=== PATIENT | female | born 1990 | race Caucasian/White ===

== ENCOUNTER 2019-04-20 19:25 | Inpatient (IN) ==
--- NOTE | 2019-04-20 21:28 | Emergency Department Note ---
Disposition Clinical Impression: Chronic schizophrenia, Acute psychosis, Dissociative identity disorder, Thoughts of violence, Marijuana abuse Disposition: Admitted As Inpatient Referrals: NONE,PCP [Primary Care Provider] - Forms: ED Satisfaction Letter Time of Disposition: 01:37 General Adult HPI - General Chief complaint: ED Psychiatric Symptoms Stated complaint: Psych Eval/Poss HI Time Seen by Provider: 04/20/19 21:27 Source: patient Limitations: no limitations - History of Present Illness HPI Narrative: 28-year-old female with a history of dissociative identity disorder and schizoaffective disorder reports to the emergency department complaining of increasing agitation with fleeting violent thoughts and hallucinosis. She denies suicidal or homicidal intent. She states she wants to be admitted to a specialty center in [place]. The patient denies self-injurious behavior, there is no history of acute trauma or acute physical complaint. The patient denies chest pain shortness of breath or abdominal pain. No trouble walking talking hearing seeing or speaking no convulsions. There is no history of headache neck stiffness rash or urinary symptoms or current . The patient denies attempted overdose or attempting to harm herself. She reports that her dissociative avoidances order is exacerbating her schizophrenia. Pain Scale: 0 - Related Data Home Medications Medication Instructions Recorded Confirmed Aripiprazole [Abilify] 5 mg PO DAILY 10/01/16 06/30/18 Levothyroxine [Synthroid] 125 mcg PO 0630 10/01/16 06/30/18 [place] Carbonate ER [Eskalith] 450 mg PO BID 10/01/16 06/30/18 Propranolol [Inderal] 20 mg PO BID 10/01/16 06/30/18 HydrOXYzine Pamoate [Vistaril] 25 mg PO BID 06/30/18 06/30/18 Norgestimate-Ethinyl Estradiol 1 each PO DAILY 06/30/18 06/30/18 [Sprintec 28 Day Tablet] Allergies Allergy/AdvReac Type Severity Reaction Status Date / Time No Known Allergies Allergy Verified 06/30/18 09:56 All systems ED: reviewed and negative except as stated. 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 LTC history - Social History Smoking Status: Current every day smoker Smokeless Tobacco Status: No Alcohol use: Reports: occasionally Drug use: Reports: marijuana Physical Exam - General Limitations: no limitations General appearance: alert, in no apparent distress - Head Head exam: atraumatic, normocephalic, normal inspection - Eye Eye exam: Present: normal appearance, PERRL, EOMI - ENT ENT exam: normal exam, normal oropharynx, mucous membranes moist, TM's normal bilaterally, normal external ear exam - Neck Neck exam: Present: normal inspection, full ROM, trachea midline - Chest Chest inspection: Present: symmetric chest wall rise. Absent: tenderness - Respiratory Respiratory exam: Present: normal lung sounds bilaterally. Absent: respiratory distress, prolonged expiratory phase - Cardiovascular Cardiovascular exam: Present: regular rate, normal rhythm, normal heart sounds - Abdominal Exam Abdominal exam: Present: soft, Non-Tender, normal bowel sounds. Absent: tenderness, distention, guarding, rebound, rigidity - Extremities Exam Extremities exam: Present: normal inspection, full ROM, normal capillary refill. Absent: tenderness, pedal edema, joint swelling, calf tenderness - Expanded Lower Extremity Exam Neurovascular/Tendon exam: Present: normal capillary refill. Absent: motor deficit, sensory deficit, tendon deficit, extremity cold to touch, pallor - Back Exam Back exam: Present: normal inspection, full ROM. Absent: tenderness, CVA tenderness (R), CVA tenderness (L), vertebral tenderness - Neurological Exam Neurological exam: Present: alert, oriented X3, CN II-XII intact. Absent: motor sensory deficit - Psychiatric Psychiatric exam: Present: normal affect, normal mood - Skin Skin exam: Present: warm, dry, intact, normal color Course Vital Signs Temperature 99.0 F 04/20/19 19:35 Pulse Rate 108 04/20/19 19:35 Respiratory Rate 16 04/20/19 19:35 Blood Pressure 136/81 04/20/19 19:35 O2 Sat by Pulse Oximetry 98 04/20/19 19:35 Temperature 99.0 F 04/20/19 19:35 Pulse Rate 108 04/20/19 19:35 Respiratory Rate 16 04/20/19 19:35 Blood Pressure 136/81 04/20/19 19:35 O2 Sat by Pulse Oximetry 98 04/20/19 19:35 Oxygen Delivery Oxygen Delivery Room Air Medical Decision Making - [facility] Narrative Medical decision making narrative: The patient has been medically cleared. The patient has been hearing voices telling her to harm other people. She has a history of schizophrenia. She appears to be having an exacerbation of her psychosis. A psychiatric consultation was obtained, they have evaluated the patient and recommended psychiatric hospitalization at this facility. The patient's currently stable pending admission. - Lab Data Lab results reviewed: Yes I reviewed the patient's lab results. Result diagrams: 04/20/19 22:17 04/20/19 22:17 Lab Results 04/20/19 04/20/19 04/20/19 Range/Units 19:53 21:25 22:17 WBC 11.3 H (4.3-11.1) K/mcL RBC 4.95 (3.82-4.97) M/mcL Hgb 13.6 (11.5-15.4) g/dL Hct 41.8 (35.3-44.9) % MCV 84.4 (83.0-100.0) fL MCH 27.5 L (28.0-33.3) pg MCHC 32.5 (31.6-35.5) g/dL RDW 13.2 (11.5-14.5) % Plt Count 267 (140-400) K/mcL MPV 10.5 (9.4-12.4) fL Immature Gran % 0.4 (0-4) % Seg Neutrophils % 63.0 % Lymphocytes % 26.6 % Monocytes % 6.1 % Eosinophils % 3.5 % Basophils % 0.4 % Neutrophils # 7.1 (1.6-8.9) K/mcL Lymphocytes # 3.0 (0.6-4.6) K/mcL Monocytes # 0.7 (0.0-1.3) K/mcL Eosinophils # 0.4 (0.0-0.6) K/mcL Basophils # 0.0 (0.0-0.2) K/mcL Sodium (136-145) mEq/L Potassium (3.5-5.1) mEq/L Chloride (98-107) mEq/L Carbon Dioxide (23-29) mEq/L BUN (6-20) mg/dL Creatinine (0.60-1.20) mg/dL Est GFR ( Amer) (> 60) Est GFR (Non-Af Amer) (> 60) BUN/Creatinine Ratio (6-26) Glucose (70-105) mg/dL Calculated Osmolality (280-300) Calcium (8.6-10.3) mg/dL Total Bilirubin (0.3-1.0) mg/dL Direct Bilirubin (0.0-0.2) mg/dL Indirect Bilirubin (0.0-1.2) mg/dL AST (13-39) Units/L ALT (7-52) Units/L Alkaline Phosphatase (34-104) Units/L Serum Total Protein (6.4-8.9) g/dL Albumin (3.5-5.7) g/dL Globulin (2.4-3.5) g/dL Albumin/Globulin Ratio (1.1-2.2) Serum , Qual (Negative) Urine Color Yellow (Yellow) Urine Clarity Cloudy A (Clear) Urine pH 6.5 (5.0-8.0) pH Units Ur Specific [place] 1.027 H (1.010-1.025) Urine Protein Negative (Neg-Trace) mg/dL Urine Glucose (UA) Normal (Normal) mg/dL Urine Ketones Negative (Negative) mg/dL Urine Blood Negative (Negative) Urine Nitrite Negative (Negative) Urine Bilirubin Negative (Negative) Urine Urobilinogen Normal (Normal) mg/dL Ur Leukocyte Esterase Negative (Negative) Urine Microscopic WBC 5-15 H (0-3) per hpf Ur Squamous Epith Cells Many H (None-Few) per lpf Calcium Oxalate Crystal Present Urine Bacteria Few (None-Few) per hpf Hyaline Casts None Seen (None-Few) per lpf Salicylates (15.0-30.0) mg/dL Urine Opiates Screen Negative (Oarzyl=362) ng/mL Acetaminophen (10-20) mcg/mL Ur Barbiturates Screen Negative (Immcma=651) ng/mL Ur Phencyclidine Scrn Negative (Cutoff=25) ng/mL Ur Amphetamines Screen Negative (Olzqig=9363) ng/mL U Benzodiazepines Scrn Negative (Jnozrg=325) ng/mL Urine Cocaine Screen Negative (Cutoff= 300) ng/mL U Marijuana (THC) Screen Positive H (Cutoff = 50) ng/mL Ur Drug Screen Interp See Below Ethyl Alcohol (Less than 10) mg/dL 04/20/19 04/20/19 04/20/19 Range/Units 22:17 22:17 22:17 WBC (4.3-11.1) K/mcL RBC (3.82-4.97) M/mcL Hgb (11.5-15.4) g/dL Hct (35.3-44.9) % MCV (83.0-100.0) fL MCH (28.0-33.3) pg MCHC (31.6-35.5) g/dL RDW (11.5-14.5) % Plt Count (140-400) K/mcL MPV (9.4-12.4) fL Immature Gran % (0-4) % Seg Neutrophils % % Lymphocytes % % Monocytes % % Eosinophils % % Basophils % % Neutrophils # (1.6-8.9) K/mcL Lymphocytes # (0.6-4.6) K/mcL Monocytes # (0.0-1.3) K/mcL Eosinophils # (0.0-0.6) K/mcL Basophils # (0.0-0.2) K/mcL Sodium 140 (136-145) mEq/L Potassium 3.7 (3.5-5.1) mEq/L Chloride 107 (98-107) mEq/L Carbon Dioxide 23 (23-29) mEq/L BUN 11 (6-20) mg/dL Creatinine 0.61 (0.60-1.20) mg/dL Est GFR ( Amer) > 60 (> 60) Est GFR (Non-Af Amer) > 60 (> 60) BUN/Creatinine Ratio 18 (6-26) Glucose 101 (70-105) mg/dL Calculated Osmolality 290 (280-300) Calcium 9.7 (8.6-10.3) mg/dL Total Bilirubin 0.2 L (0.3-1.0) mg/dL Direct Bilirubin 0.1 (0.0-0.2) mg/dL Indirect Bilirubin 0.1 (0.0-1.2) mg/dL AST 14 (13-39) Units/L ALT 21 (7-52) Units/L Alkaline Phosphatase 54 (34-104) Units/L Serum Total Protein 7.1 (6.4-8.9) g/dL Albumin 4.2 (3.5-5.7) g/dL Globulin 2.9 (2.4-3.5) g/dL Albumin/Globulin Ratio 1.4 (1.1-2.2) Serum , Qual Negative (Negative) Urine Color (Yellow) Urine Clarity (Clear) Urine pH (5.0-8.0) pH Units Ur Specific [place] (1.010-1.025) Urine Protein (Neg-Trace) mg/dL Urine Glucose (UA) (Normal) mg/dL Urine Ketones (Negative) mg/dL Urine Blood (Negative) Urine Nitrite (Negative) Urine Bilirubin (Negative) Urine Urobilinogen (Normal) mg/dL Ur Leukocyte Esterase (Negative) Urine Microscopic WBC (0-3) per hpf Ur Squamous Epith Cells (None-Few) per lpf Calcium Oxalate Crystal Urine Bacteria (None-Few) per hpf Hyaline Casts (None-Few) per lpf Salicylates < 2.5 L (15.0-30.0) mg/dL Urine Opiates Screen (Auaixo=309) ng/mL Acetaminophen < 10 L (10-20) mcg/mL Ur Barbiturates Screen (Piyzww=396) ng/mL Ur Phencyclidine Scrn (Cutoff=25) ng/mL Ur Amphetamines Screen (Buzwut=4247) ng/mL U Benzodiazepines Scrn (Tzrepe=540) ng/mL Urine Cocaine Screen (Cutoff= 300) ng/mL U Marijuana (THC) Screen (Cutoff = 50) ng/mL Ur Drug Screen Interp Ethyl Alcohol < 10 (Less than 10) mg/dL
[2019-04-20 22:11] LABS: Bilirubin,Urine Negative (Negative); Blood,Urine Negative (Negative); Clarity,Urine Cloudy (Clear); Color,Urine Yellow (Yellow); Glucose,Urine (UA) Normal (Normal); Ketones,Urine Negative (Negative); Leukocyte Esterase,Urine Negative (Negative); Nitrite,Urine Negative (Negative); PH,Urine 6.5 pH Units (5.0-8.0); Protein,Urine Negative (Neg-Trace); Specific Gravity,Urine 1.027 (1.010-1.025); Urobilinogen,Urine Normal (Normal)
[2019-04-20 22:13] LABS: Bacteria,Urine Few per hpf (None-Few); Hyaline Casts,Urine None Seen per lpf (None-Few); Squamous Epithelial Cell,Urine Many per lpf (None-Few)
[2019-04-20 22:29] LABS: Calcium Oxalate Crystals,Urine Present
[2019-04-20 22:34] LABS: Amphetamine Screen,Urine Negative ng/mL (Cutoff=1000); Barbiturate Screen,Urine Negative ng/mL (Cutoff=200); Benzodiazepines Screen,Urine Negative ng/mL (Cutoff=200); Cannabinoid Screen,Urine Positive ng/mL (Cutoff = 50); Cocaine Screen,Urine Negative ng/mL (Cutoff= 300); Opiate Screen,Urine Negative ng/mL (Cutoff=300); Phencyclidine Screen,Urine Negative ng/mL (Cutoff=25)
[2019-04-20 22:52] LABS: Basophils % 0.4 %; Eosinophils # 0.4 K/mcL (0.0-0.6); Eosinophils % 3.5 %; Hematocrit 41.8 % (35.3-44.9); Hemoglobin 13.6 g/dL (11.5-15.4); Immature Granulocytes % 0.4 % (0-4); Lymphocytes % 26.6 %; Mean Corpuscular HGB Conc 32.5 g/dL (31.6-35.5); Mean Corpuscular Hemoglobin 27.5 pg (28.0-33.3); Mean Corpuscular Volume 84.4 fL (83.0-100.0); Mean Platelet Volume 10.5 fL (9.4-12.4); Monocytes # 0.7 K/mcL (0.0-1.3); Monocytes % 6.1 %; Neutrophils # 7.1 K/mcL (1.6-8.9); Platelet Count 267 K/mcL (140-400); Red Blood Count 4.95 M/mcL (3.82-4.97); Red Cell Distribution Width 13.2 % (11.5-14.5); White Blood Count 11.3 K/mcL (4.3-11.1)
[2019-04-20 23:14] LABS: Albumin 4.2 g/dL (3.5-5.7); Albumin/Globulin Ratio 1.4 (1.1-2.2); Bilirubin,Direct 0.1 mg/dL (0.0-0.2); Bilirubin,Indirect 0.1 mg/dL (0.0-1.2); Bilirubin,Total 0.2 mg/dL (0.3-1.0); Globulin 2.9 g/dL (2.4-3.5); Total Protein 7.1 g/dL (6.4-8.9)
[2019-04-20 23:15] LABS: Acetaminophen < 10 mcg/mL (10-20); BUN/Creatinine Ratio 18 (6-26); Blood Urea Nitrogen 11 mg/dL (6-20); Calcium 9.7 mg/dL (8.6-10.3); Carbon Dioxide 23 mEq/L (23-29); Chloride 107 mEq/L (98-107); Ethanol < 10 mg/dL (Less than 10); Glucose 101 mg/dL (70-105); Osmolality,Calculated 290 (280-300); Potassium 3.7 mEq/L (3.5-5.1); Salicylate < 2.5 mg/dL (15.0-30.0); Sodium 140 mEq/L (136-145); eGFR For African Americans > 60 (> 60); eGFR For Non-African Americans > 60 (> 60)
[2019-04-21] MEDS ORDERED: Ibuprofen 400 MG TABLET PO PRN (02:04)
[2019-04-21] MEDS ORDERED: Mag Hydrox/Al Hydrox/Simeth 30 ML UDC PO PRN (02:04)
[2019-04-21] MEDS ORDERED: Haloperidol Lactate 5 MG/ML VIAL IM PRN (02:04)
[2019-04-21] MEDS ORDERED: MOM Conc 10 ML UD.LIQ PO PRN (02:04)
[2019-04-21] MEDS ORDERED: *HR* LORazepam 2 MG/ML VIAL IM PRN (02:04)
[2019-04-21] MEDS ORDERED: *HR* LORazepam 1 MG TABLET PO PRN (02:04)
[2019-04-21] MEDS: hydrOXYzine pamoate 25 MG CAPSULE PO PRN ×2 (03:15→17:00)
[2019-04-21] MEDS: traZODone 50 MG TABLET PO PRN ×2 (03:15→21:02)
[2019-04-21] MEDS: NORGESTIMATE ETHINYL ESTRADIOL PO SCH (09:42)
--- NOTE | 2019-04-21 09:55 | Psychiatry History & Physical ---
Date of Encounter: 04/21/19 Time of Encounter: 09:30 History of Present Illness Patient Stated Chief Complaint: "I can't go on like this" Medicare Admission Attestation: For traditional Medicare patients the provided hospital inpatient services are reasonable and necessary and in the case of services not specified as inpatient-only under 42 CFR 419.22 (n), that they are appropriately provided as inpatient services in accordance 42 CFR 412.3. For Critical Access Hospital the patient may reasonably be expected to be discharged or transferred to a hospital within 96 hours after admission to the Critical Access Hospital. Admitted From: Emergency Dept Plans for Post Hospital Care: Home History of Present Illness: Ms. Lombardi is a 28 year old female who presented to the emergency room for worsening mental health symptoms. She reported that she had been trying for several weeks to get into a facility in [facility] that specializes in treating individuals with dissociative identity disorder. He, overwhelmed by making all the phone calls and trying to get connections and she had a worsening of her auditory hallucinations which were at times command telling her to harm herself as well as worsening paranoia. She states she has also been seeing things out of the corner of her eyes. She reports that she dissociates and loses track of time. She reports that she has intrusive violent thoughts with plans to harm someone but would not discuss the target. She reported some sad mood, decreased interest, feelings of guilt and worthlessness, low energy, hopelessness. She reports a history of manic symptoms with irritability increased rate of speech decreased need for sleep increased energy risk taking behavior and racing thoughts. 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 Christensen and a therapist named Sheree state that she has been diagnosed with bipolar disorder. As well as a history of head injury concussions and behavioral episodes. She reports prior psychiatric hospitalizations in [place]. She has not had any since she moved to [place] in 2013. She has a history of overdose and cutting her wrists at age 12. She had been on Abilify 10 mg fairly recently but said that this caused her to have muscle tightness and teeth clenching. Zoloft was added in last few months which she initially felt was helpful. She says she has been on lithium for several years. Family psychiatric history: Unknown Family History of Suicide: Unknown - Social History Smoking Status: Current every day smoker Smokeless Tobacco Status: Yes Alcohol use: occasionally Drug use: marijuana Occupational status: unemployed Current living situation: Home, With Family Activity Level: Independent ambulation Recent Out of Country Travel Within the Last 8 Weeks: No Exposure or Possible Exposure to Illness During Travel: No Additional social history: She lives with her mother and stepfather her and their 6 ,8 and 11-year-old children as well as her sister. She also has a 17-year-old stepdaughter and a infant stepgrandchild. She does not work.she moved from [place] in 2013 to stay with her mother and help her with her chronic medical problem. Medications & Allergies [place] Carbonate ER [Eskalith] 450 mg PO BID 10/01/16 [History] Propranolol [Inderal] 20 mg PO BID 10/01/16 [History] HydrOXYzine Pamoate [Vistaril] 50 mg PO BID 06/30/18 [History] Norgestimate-Ethinyl Estradiol [Sprintec 28 Day Tablet] 1 each PO DAILY 06/30/18 [History] ARIPiprazole [Abilify] 10 mg PO DAILY 04/21/19 [History] Sertraline [Zoloft] 50 mg PO DAILY 04/21/19 [History] Allergy/AdvReac Type Severity Reaction Status Date / Time No Known Allergies Allergy Verified 06/30/18 09:56 Review of Systems Constitutional: Denies: fever Eyes: Denies: eye pain Ears, Nose, Throat: Denies: ear pain Cardiovascular: Denies: chest pain Respiratory: Denies: cough Gastrointestinal: Denies: abdominal pain Genitourinary female: Denies: urgency Musculoskeletal: Denies: back pain Integumentary: Denies: rash Neurological: Denies: headache Psychiatric: Reports: depression, suicidal ideation, homicidal ideation, auditory hallucinations, visual hallucinations, hopelessness, irritability, mood swings Endocrine: Reports: fatigue Hematologic/Lymphatic: Denies: easy bleeding Allergic/Immunologic: Denies: facial swelling Exam - HEENT Head exam IM: Present: atraumatic Eye exam IM: Present: EOMI ENT exam IM: Present: mucous membranes moist - Neurological Neurological exam: Present: CN II-XII intact - Respiratory Respiratory exam IM: Absent: respiratory distress - GI/Abdominal GI/Abdominal exam IM: Present: no peritoneal signs - Extremities Extremities exam IM: Present: full ROM - Skin Skin exam IM: Absent: abrasion - Constitutional Vitals: Temp Pulse Resp BP Pulse Ox 97.7 F 80 16 123/85 98 04/21/19 02:19 04/21/19 02:19 04/21/19 02:19 04/21/19 02:04/21/19 02:19 General appearance: age & developmentally appropriate, obese - Musculoskeletal Gait: slow Station: stooped Strength & Tone: normal for patient - Psychiatric Patient Orientation: Yes Person, Yes Time, Yes Place Level of alertness: Alert Behavior: anxious Psychomotor activity: Normal Eye Contact: Maintains Eye Contact Mood Description: Depressed, Anxious Patient description of mood: Scared Affect description: congruent with mood Speech Volume: Normal Speech pattern: normal rate Language & Vocabulary: consistent with education Thought Process: Intact Thought Content: Yes Suicidal ideation, Yes Homicidal ideation, Yes Paranoid delusion Perceptual Disturbances: Yes Auditory hallucinations, Yes Visual hallucinations Attention Span Ability: Capable of Focused Attention Memory Description: Grossly Intact Patient Reliability: Reliable Historian Fund of knowledge: Yes abstraction ability, Yes average, Yes aware of current events Intelligence Estimate: Average Judgment: Limited Insight: Minimal Results - Drug Levels and Toxicology Drug Levels and Toxicology: Drug Levels and Toxicity 04/20/19 04/20/19 04/21/19 21:25 22:17 02:08 Urine Opiates Screen Negative Acetaminophen < 10 L Ur Barbiturates Screen Negative Ur Phencyclidine Scrn Negative Ur Amphetamines Screen Negative U Benzodiazepines Scrn Negative [place] 0.3 L Urine Cocaine Screen Negative U Marijuana (THC) Screen Positive H Ethyl Alcohol < 10 - Labs Labs: Laboratory Last Values WBC 11.3 K/mcL (4.3-11.1) H 04/20/19 22:17 RBC 4.95 M/mcL (3.82-4.97) 04/20/19 22:17 Hgb 13.6 g/dL (11.5-15.4) 04/20/19 22:17 Hct 41.8 % (35.3-44.9) 04/20/19 22:17 MCV 84.4 fL (83.0-100.0) 04/20/19 22:17 MCH 27.5 pg (28.0-33.3) L 04/20/19 22:17 MCHC 32.5 g/dL (31.6-35.5) 04/20/19 22:17 RDW 13.2 % (11.5-14.5) 04/20/19 22:17 Plt Count 267 K/mcL (140-400) 04/20/19 22:17 MPV 10.5 fL (9.4-12.4) 04/20/19 22:17 Immature Gran % 0.4 % (0-4) 04/20/19 22:17 Seg Neutrophils % 63.0 % 04/20/19 22:17 26.6 % 04/20/19 22:17 6.1 % 04/20/19 22:17 3.5 % 04/20/19 22:17 0.4 % 04/20/19 22:17 7.1 K/mcL (1.6-8.9) 04/20/19 22:17 3.0 K/mcL (0.6-4.6) 04/20/19 22:17 0.7 K/mcL (0.0-1.3) 04/20/19 22:17 0.4 K/mcL (0.0-0.6) 04/20/19 22:17 0.0 K/mcL (0.0-0.2) 04/20/19 22:17 Sodium 140 mEq/L (136-145) 04/20/19 22:17 Potassium 3.7 mEq/L (3.5-5.1) 04/20/19 22:17 Chloride 107 mEq/L (98-107) 04/20/19 22:17 Carbon Dioxide 23 mEq/L (23-29) 04/20/19 22:17 BUN 11 mg/dL (6-20) 04/20/19 22:17 0.61 mg/dL (0.60-1.20) 04/20/19 22:17 Est GFR ( Amer) > 60 (> 60) 04/20/19 22:17 Est GFR (Non-Af Amer) > 60 (> 60) 04/20/19 22:17 18 (6-26) 04/20/19 22:17 Glucose 101 mg/dL (70-105) 04/20/19 22:17 290 (280-300) 04/20/19 22:17 Calcium 9.7 mg/dL (8.6-10.3) 04/20/19 22:17 0.2 mg/dL (0.3-1.0) L 04/20/19 22:17 0.1 mg/dL (0.0-0.2) 04/20/19 22:17 0.1 mg/dL (0.0-1.2) 04/20/19 22:17 AST 14 Units/L (13-39) 04/20/19 22:17 ALT 21 Units/L (7-52) 04/20/19 22:17 54 Units/L (34-104) 04/20/19 22:17 7.1 g/dL (6.4-8.9) 04/20/19 22:17 4.2 g/dL (3.5-5.7) 04/20/19 22:17 2.9 g/dL (2.4-3.5) 04/20/19 22:17 1.4 (1.1-2.2) 04/20/19 22:17 Serum , Qual Negative (Negative) 04/20/19 22:17 Yellow (Yellow) 04/20/19 19:53 Cloudy (Clear) A 04/20/19 19:53 6.5 pH Units (5.0-8.0) 04/20/19 19:53 Ur Specific [place] 1.027 (1.010-1.025) H 04/20/19 19:53 Negative mg/dL (Neg-Trace) 04/20/19 19:53 Normal mg/dL (Normal) 04/20/19 19:53 Negative mg/dL (Negative) 04/20/19 19:53 Negative (Negative) 04/20/19 19:53 Negative (Negative) 04/20/19 19:53 Negative (Negative) 04/20/19 19:53 Normal mg/dL (Normal) 04/20/19 19:53 Ur Leukocyte Esterase Negative (Negative) 04/20/19 19:53 5-15 per hpf (0-3) H 04/20/19 19:53 Ur Squamous Epith Cells Many per lpf (None-Few) H 04/20/19 19:53 Calcium Oxalate Crystal Present 04/20/19 19:53 Few per hpf (None-Few) 04/20/19 19:53 Hyaline Casts None Seen per lpf (None-Few) 04/20/19 19:53 Salicylates < 2.5 mg/dL (15.0-30.0) L 04/20/19 22:17 Negative ng/mL (Pcwfau=478) 04/20/19 21:25 Acetaminophen < 10 mcg/mL (10-20) L 04/20/19 22:17 Ur Barbiturates Screen Negative ng/mL (Smqkis=703) 04/20/19 21:25 Ur Phencyclidine Scrn Negative ng/mL (Cutoff=25) 04/20/19 21:25 Ur Amphetamines Screen Negative ng/mL (Tijysr=6431) 04/20/19 21:25 U Benzodiazepines Scrn Negative ng/mL (Nackym=564) 04/20/19 21:25 [place] 0.3 mEq/L (0.6-1.2) L 04/21/19 02:08 Negative ng/mL (Cutoff= 300) 04/20/19 21:25 U Marijuana (THC) Screen Positive ng/mL (Cutoff = 50) H 04/20/19 21:25 Ur Drug Screen Interp See Below 04/20/19 21:25 Ethyl Alcohol < 10 mg/dL (Less than 10) 04/20/19 22:17 Assessment and Plan (1) Bipolar disorder current episode depressed Current visit: Yes Status: Acute Plan: Admit inpatient for safety and stabilization, Close observation, Suicide Precautions per unit protocol, Encourage participation in unit milieu, Group Therapy, Monitor sleep, Monitor appetite Additional Plan: Patient gave consent for me to call Dr. Christensen. I will discuss with her treatment options. He shows lithium level was low but it is unclear if it was drawn at an appropriate time to get an accurate idea of the therapeutic nature of her dose. We will continue propranolol Abilify and lithium for now while I get additional data from Dr. Christensen. Encourage groups. We will get information about [facility]. Reviewed Interval hx Review any current labs Pt had an opportunity to ask questions and discuss current treatment plan. Supportive therapy was provided Pt encouraged to consider group or individual therapy Pt was in agreement with treatment plan. Pt was educated on the risks benefits and side effects of current medications and alternatives as well as the risks and benefits of no medication. AIMS = 0 lipids and hgba1c Risks, benefits, side effects, alternatives discussed w/pt: Yes Patient agreeable to treatment: Yes Plans for Post Hospital Care: Home Estimated Length of Stay (Days): 5 Qualifiers: Current episode severity: severe Psychotic features: with psychotic features Qualified Code(s): F31.5 - Bipolar disorder, current episode depressed, severe, with psychotic features
[2019-04-21] MEDS: Nicotine 2 MG GUM BC PRN ×4 (10:26→21:33)
[2019-04-21 10:38] LABS: Basophils % 0.2 %; Eosinophils # 0.3 K/mcL (0.0-0.6); Eosinophils % 3.6 %; Hematocrit 42.6 % (35.3-44.9); Hemoglobin 13.4 g/dL (11.5-15.4); Immature Granulocytes % 0.3 % (0-4); Lymphocytes # 2.5 K/mcL (0.6-4.6); Lymphocytes % 27.3 %; Mean Corpuscular HGB Conc 31.5 g/dL (31.6-35.5); Mean Corpuscular Hemoglobin 26.7 pg (28.0-33.3); Mean Corpuscular Volume 84.9 fL (83.0-100.0); Mean Platelet Volume 10.5 fL (9.4-12.4); Monocytes # 0.6 K/mcL (0.0-1.3); Monocytes % 6.2 %; Neutrophils # 5.6 K/mcL (1.6-8.9); Platelet Count 253 K/mcL (140-400); Red Blood Count 5.02 M/mcL (3.82-4.97); Red Cell Distribution Width 13.2 % (11.5-14.5); Segmented Neutrophils % 62.4 %
[2019-04-21 10:42] LABS: Estimated Average Glucose 117 mg/dl; Hemoglobin A1C 5.7 %
[2019-04-21 10:57] LABS: Alanine Aminotransferase 22 Units/L (7-52); Albumin 4.1 g/dL (3.5-5.7); Albumin/Globulin Ratio 1.4 (1.1-2.2); Alkaline Phosphatase 52 Units/L (34-104); Aspartate Amino Transferase 14 Units/L (13-39); BUN/Creatinine Ratio 16 (6-26); Bilirubin,Total 0.3 mg/dL (0.3-1.0); Blood Urea Nitrogen 10 mg/dL (6-20); Calcium 9.2 mg/dL (8.6-10.3); Carbon Dioxide 21 mEq/L (23-29); Chloride 108 mEq/L (98-107); Chol/HDL Ratio 4.2 (0-4.9); Cholesterol 140 mg/dL (< 200); Globulin 2.9 g/dL (2.4-3.5); Glucose 117 mg/dL (70-105); HDL Cholesterol 33 mg/dL (40-59); LDL Cholesterol,Calculated 66 mg/dL (0-99); Osmolality,Calculated 282 (280-300); Potassium 3.8 mEq/L (3.5-5.1); Sodium 136 mEq/L (136-145); Triglycerides 207 mg/dL (< 150); eGFR For African Americans > 60 (> 60); eGFR For Non-African Americans > 60 (> 60)
[2019-04-21] MEDS: hydrOXYzine pamoate 25 MG CAPSULE PO SCH ×2 (10:57→21:02)
[2019-04-21 11:08] LABS: Thyroid Stimulating Hormone 8.545 mcIU/mL (0.340-5.600)
[2019-04-21] MEDS: ARIPiprazole 5 MG TABLET PO SCH (11:23)
[2019-04-21] MEDS: Lithium Carbonate ER 450 MG TABLET.ER PO SCH ×2 (11:23→21:02)
[2019-04-21] MEDS ORDERED: ARIPiprazole 5 MG TABLET PO SCH (21:00)
[2019-04-22] MEDS: ARIPiprazole 5 MG TABLET PO SCH (09:42)
[2019-04-22] MEDS: hydrOXYzine pamoate 25 MG CAPSULE PO SCH ×2 (09:43→20:27)
[2019-04-22] MEDS: NORGESTIMATE ETHINYL ESTRADIOL PO SCH (09:43)
[2019-04-22] MEDS: Lithium Carbonate ER 450 MG TABLET.ER PO SCH ×2 (09:43→20:28)
--- NOTE | 2019-04-22 09:54 | Psychiatry Progress Note ---
Date of Encounter: 04/22/19 Time of Encounter: 09:40 Subjective Interval history: Patient reports she continues to feel down with sad mood, decreased interest, feelings of guilt and worthlessness, low energy, and suicidal ideations. She is open to trying the increase in Abilify. I spoke with Dr. Christensen yesterday and then again this morning after she had spoken with Sheree the therapist that the patient has been working with. Neither have formally diagnosed dissociative identity disorder and Dr. Christensen had been unable to find it historically in her chart. Reports periods of loss of time. Yesterday while in a group she asked to change glasses to a different color and began writing an apology letter from an alter to Carmen. We discussed with the goal of most therapies is integration and honoring the self and the whole and avoiding further fracture. Review of Systems Psychiatric: Reports: depression, suicidal ideation, homicidal ideation, auditory hallucinations, visual hallucinations, hopelessness, irritability, mood swings Results - Vital Signs Vital Signs: Temp Pulse Resp BP Pulse Ox 97.6 F 92 16 118/78 98 04/21/19 20:29 04/21/19 20:29 04/21/19 20:29 04/21/19 20:29 04/21/19 20:29 - Labs Labs: Laboratory Results - last 24 hr 04/21/19 04/21/19 04/21/19 10:02 10:02 10:02 WBC 9.0 RBC 5.02 H Hgb 13.4 Hct 42.6 MCV 84.9 MCH 26.7 L MCHC 31.5 L RDW 13.2 Plt Count 253 MPV 10.5 Immature Gran % 0.3 Seg Neutrophils % 62.4 Lymphocytes % 27.3 Monocytes % 6.2 Eosinophils % 3.6 Basophils % 0.2 Neutrophils # 5.6 Lymphocytes # 2.5 Monocytes # 0.6 Eosinophils # 0.3 Basophils # 0.0 Sodium 136 Potassium 3.8 Chloride 108 H Carbon Dioxide 21 L BUN 10 Creatinine 0.62 Est GFR ( Amer) > 60 Est GFR (Non-Af Amer) > 60 BUN/Creatinine Ratio 16 Glucose 117 H Est Mean Plasma Glucose 117 Hemoglobin A1c 5.7 H Calculated Osmolality 282 Calcium 9.2 Total Bilirubin 0.3 AST 14 ALT 22 Alkaline Phosphatase 52 Serum Total Protein 7.0 Albumin 4.1 Globulin 2.9 Albumin/Globulin Ratio 1.4 Triglycerides 207 H Cholesterol 140 LDL Cholesterol, Calc 66 VLDL Cholesterol, Calc 41 H HDL Cholesterol 33 L Cholesterol/HDL Ratio 4.2 TSH 8.545 H Assessment and Plan (1) Bipolar disorder current episode depressed Current visit: Yes Status: Acute Plan: Continue hospitalization, Close observation, Suicide Precautions per unit protocol, Encourage participation in unit milieu, Group Therapy, Monitor sleep, Monitor appetite Additional Plan: Encourage continued group attendance. Increase Abilify to 10 mg every morning. Scheduled Cogentin 0.5 twice a day issues previously had some bruxism with this medication. Therapists working on discharge planning. Risks, benefits, side effects, alternatives discussed w/pt: Yes Patient agreeable to treatment: Yes Qualifiers: Current episode severity: severe Psychotic features: with psychotic features Qualified Code(s): F31.5 - Bipolar disorder, current episode depressed, severe, with psychotic features Consult Discharge Plan - Plan Referrals: [facility] [Outside] - 05/01/19 10:00 am (You have an appointment scheduled on Wednesday, May 01, 2019 at 10:00 AM with Sheree Quiroz PCC for Counseling. Please contact the office at least 24 hours in advance if you are unable to keep your appointment(s). ) Psychiatry Exam - Constitutional Vitals: Temp Pulse Resp BP Pulse Ox 97.6 F 92 16 118/78 98 04/21/19 20:29 04/21/19 20:29 04/21/19 20:29 04/21/19 20:29 04/21/19 20:29 General appearance: age & developmentally appropriate, obese - Musculoskeletal Gait: slow Station: stooped Strength & Tone: normal for patient - Psychiatric Patient Orientation: Yes Person, Yes Time, Yes Place, Yes Circumstance Level of alertness: Alert Behavior: calm, cooperative Psychomotor activity: Slowed Eye Contact: Minimal Contact Mood Description: Depressed Patient description of mood: don Affect description: dysphoric Speech Volume: Soft/Quiet Speech pattern: slowed Language & Vocabulary: consistent with education Thought Process: Linear, Goal Oriented Thought Content: Yes Suicidal ideation, No Homicidal ideation, Yes Paranoid delusion Perceptual Disturbances: Yes Auditory hallucinations, Yes Visual hallucinations Attention Span Ability: Capable of Focused Attention Memory Description: Grossly Intact Patient Reliability: Reliable Historian Fund of knowledge: Yes abstraction ability, Yes aware of current events Intelligence Estimate: Average Judgment: Limited Insight: Minimal
[2019-04-22] MEDS: Nicotine 2 MG GUM BC PRN ×4 (10:15→20:30)
--- NOTE | 2019-04-23 08:49 | Discharge Summary ---
Date of Encounter: 04/23/19 Time of Encounter: 08:35 Diagnosis - Discharge Diagnosis (1) Bipolar disorder current episode depressed Status: Acute Qualifiers: Current episode severity: severe Psychotic features: with psychotic features Qualified Code(s): F31.5 - Bipolar disorder, current episode depressed, severe, with psychotic features Medications - Discharge Medications Prescriptions: Benztropine [Cogentin] 0.5 mg PO BID #[address] [place] Carbonate ER [Eskalith] 450 mg PO BID 10/01/16 [History] Propranolol [Inderal] 20 mg PO BID 10/01/16 [History] HydrOXYzine Pamoate [Vistaril] 50 mg PO BID 06/30/18 [History] Norgestimate-Ethinyl Estradiol [Sprintec 28 Day Tablet] 1 each PO DAILY 06/30/18 [History] Sertraline [Zoloft] 50 mg PO DAILY 04/21/19 [History] Cyanocobalamin (Vitamin B-12) [Vitamin B-12] 2,000 mcg PO DAILY 04/22/19 [History] ARIPiprazole [Abilify] 10 mg PO DAILY tablet 04/23/19 [Rx] Benztropine [Cogentin] 0.5 mg PO BID #30 tablet 04/23/19 [Rx] Allergy/AdvReac Type Severity Reaction Status Date / Time Dickson-3 acid Ethyl Esters AdvReac Vomiting Verified 04/22/19 13:20 Results Procedures and tests throughout hospitalization: Completed Lab Orders Category Date Time Status Acetaminophen Stat Lab 04/20/19 22:17 Completed Basic Metabolic Panel Stat Lab 04/20/19 22:17 Completed Complete Blood Count [HEME] Routine Lab 04/21/19 10:02 Completed Complete Blood Count [HEME] Stat Lab 04/20/19 22:17 Completed Comprehensive Metabolic Panel Routine Lab 04/21/19 10:02 Completed Drug Screen, Urine [UCHEM] Stat Lab 04/20/19 21:25 Completed Ethanol Stat Lab 04/20/19 22:17 Completed HCG,Routine Test Stat Lab 04/20/19 22:17 Completed Hgb A1C Routine Lab 04/21/19 10:02 Completed Lipid Panel Routine Lab 04/21/19 10:[address] [place] AM 0400 Lab 04/22/19 07:[address] [place] Routine Lab 04/21/19 02:08 Completed Salicylate Stat Lab 04/20/19 22:17 Completed Thyroid Stimulating Hormone Routine Lab 04/21/19 10:02 Completed Urinalysis reflex Microscopic [URIN] Stat Lab 04/20/19 19:53 Completed liver [Hepatic Panel] Stat Lab 04/20/19 22:17 Completed Lab Results 04/20/19 04/20/19 04/20/19 Range/Units 19:53 21:25 22:17 WBC 11.3 H (4.3-11.1) K/mcL RBC 4.95 (3.82-4.97) M/mcL Hgb 13.6 (11.5-15.4) g/dL Hct 41.8 (35.3-44.9) % MCV 84.4 (83.0-100.0) fL MCH 27.5 L (28.0-33.3) pg MCHC 32.5 (31.6-35.5) g/dL RDW 13.2 (11.5-14.5) % Plt Count 267 (140-400) K/mcL MPV 10.5 (9.4-12.4) fL Immature Gran % 0.4 (0-4) % Seg Neutrophils % 63.0 % Lymphocytes % 26.6 % Monocytes % 6.1 % Eosinophils % 3.5 % Basophils % 0.4 % Neutrophils # 7.1 (1.6-8.9) K/mcL Lymphocytes # 3.0 (0.6-4.6) K/mcL Monocytes # 0.7 (0.0-1.3) K/mcL Eosinophils # 0.4 (0.0-0.6) K/mcL Basophils # 0.0 (0.0-0.2) K/mcL Sodium (136-145) mEq/L Potassium (3.5-5.1) mEq/L Chloride (98-107) mEq/L Carbon Dioxide (23-29) mEq/L BUN (6-20) mg/dL Creatinine (0.60-1.20) mg/dL Est GFR ( Amer) (> 60) Est GFR (Non-Af Amer) (> 60) BUN/Creatinine Ratio (6-26) Glucose (70-105) mg/dL Est Mean Plasma Glucose mg/dl Hemoglobin A1c ( - 5.6) % Calculated Osmolality (280-300) Calcium (8.6-10.3) mg/dL Total Bilirubin (0.3-1.0) mg/dL Direct Bilirubin (0.0-0.2) mg/dL Indirect Bilirubin (0.0-1.2) mg/dL AST (13-39) Units/L ALT (7-52) Units/L Alkaline Phosphatase (34-104) Units/L Serum Total Protein (6.4-8.9) g/dL Albumin (3.5-5.7) g/dL Globulin (2.4-3.5) g/dL Albumin/Globulin Ratio (1.1-2.2) Triglycerides (< 150) mg/dL Cholesterol (< 200) mg/dL LDL Cholesterol, Calc (0-99) mg/dL VLDL Cholesterol, Calc (< 31) mg/dL HDL Cholesterol (40-59) mg/dL Cholesterol/HDL Ratio (0-4.9) TSH (0.340-5.600) mcIU/mL Serum , Qual (Negative) Urine Color Yellow (Yellow) Urine Clarity Cloudy A (Clear) Urine pH 6.5 (5.0-8.0) pH Units Ur Specific [place] 1.027 H (1.010-1.025) Urine Protein Negative (Neg-Trace) mg/dL Urine Glucose (UA) Normal (Normal) mg/dL Urine Ketones Negative (Negative) mg/dL Urine Blood Negative (Negative) Urine Nitrite Negative (Negative) Urine Bilirubin Negative (Negative) Urine Urobilinogen Normal (Normal) mg/dL Ur Leukocyte Esterase Negative (Negative) Urine Microscopic WBC 5-15 H (0-3) per hpf Ur Squamous Epith Cells Many H (None-Few) per lpf Calcium Oxalate Crystal Present Urine Bacteria Few (None-Few) per hpf Hyaline Casts None Seen (None-Few) per lpf Salicylates (15.0-30.0) mg/dL Urine Opiates Screen Negative (Pizujd=641) ng/mL Acetaminophen (10-20) mcg/mL Ur Barbiturates Screen Negative (Nxiiwo=041) ng/mL Ur Phencyclidine Scrn Negative (Cutoff=25) ng/mL Ur Amphetamines Screen Negative (Kzpofn=5185) ng/mL U Benzodiazepines Scrn Negative (Qjcrfn=070) ng/mL [place] (0.6-1.2) mEq/L Urine Cocaine Screen Negative (Cutoff= 300) ng/mL U Marijuana (THC) Screen Positive H (Cutoff = 50) ng/mL Ur Drug Screen Interp See Below Ethyl Alcohol (Less than 10) mg/dL 04/20/19 04/20/19 04/20/19 Range/Units 22:17 22:17 22:17 WBC (4.3-11.1) K/mcL RBC (3.82-4.97) M/mcL Hgb (11.5-15.4) g/dL Hct (35.3-44.9) % MCV (83.0-100.0) fL MCH (28.0-33.3) pg MCHC (31.6-35.5) g/dL RDW (11.5-14.5) % Plt Count (140-400) K/mcL MPV (9.4-12.4) fL Immature Gran % (0-4) % Seg Neutrophils % % Lymphocytes % % Monocytes % % Eosinophils % % Basophils % % Neutrophils # (1.6-8.9) K/mcL Lymphocytes # (0.6-4.6) K/mcL Monocytes # (0.0-1.3) K/mcL Eosinophils # (0.0-0.6) K/mcL Basophils # (0.0-0.2) K/mcL Sodium 140 (136-145) mEq/L Potassium 3.7 (3.5-5.1) mEq/L Chloride 107 (98-107) mEq/L Carbon Dioxide 23 (23-29) mEq/L BUN 11 (6-20) mg/dL Creatinine 0.61 (0.60-1.20) mg/dL Est GFR ( Amer) > 60 (> 60) Est GFR (Non-Af Amer) > 60 (> 60) BUN/Creatinine Ratio 18 (6-26) Glucose 101 (70-105) mg/dL Est Mean Plasma Glucose mg/dl Hemoglobin A1c ( - 5.6) % Calculated Osmolality 290 (280-300) Calcium 9.7 (8.6-10.3) mg/dL Total Bilirubin 0.2 L (0.3-1.0) mg/dL Direct Bilirubin 0.1 (0.0-0.2) mg/dL Indirect Bilirubin 0.1 (0.0-1.2) mg/dL AST 14 (13-39) Units/L ALT 21 (7-52) Units/L Alkaline Phosphatase 54 (34-104) Units/L Serum Total Protein 7.1 (6.4-8.9) g/dL Albumin 4.2 (3.5-5.7) g/dL Globulin 2.9 (2.4-3.5) g/dL Albumin/Globulin Ratio 1.4 (1.1-2.2) Triglycerides (< 150) mg/dL Cholesterol (< 200) mg/dL LDL Cholesterol, Calc (0-99) mg/dL VLDL Cholesterol, Calc (< 31) mg/dL HDL Cholesterol (40-59) mg/dL Cholesterol/HDL Ratio (0-4.9) TSH (0.340-5.600) mcIU/mL Serum , Qual Negative (Negative) Urine Color (Yellow) Urine Clarity (Clear) Urine pH (5.0-8.0) pH Units Ur Specific [place] (1.010-1.025) Urine Protein (Neg-Trace) mg/dL Urine Glucose (UA) (Normal) mg/dL Urine Ketones (Negative) mg/dL Urine Blood (Negative) Urine Nitrite (Negative) Urine Bilirubin (Negative) Urine Urobilinogen (Normal) mg/dL Ur Leukocyte Esterase (Negative) Urine Microscopic WBC (0-3) per hpf Ur Squamous Epith Cells (None-Few) per lpf Calcium Oxalate Crystal Urine Bacteria (None-Few) per hpf Hyaline Casts (None-Few) per lpf Salicylates < 2.5 L (15.0-30.0) mg/dL Urine Opiates Screen (Yiyfoz=116) ng/mL Acetaminophen < 10 L (10-20) mcg/mL Ur Barbiturates Screen (Ajhjdd=749) ng/mL Ur Phencyclidine Scrn (Cutoff=25) ng/mL Ur Amphetamines Screen (Etuyca=6853) ng/mL U Benzodiazepines Scrn (Tssayq=380) ng/mL [place] (0.6-1.2) mEq/L Urine Cocaine Screen (Cutoff= 300) ng/mL U Marijuana (THC) Screen (Cutoff = 50) ng/mL Ur Drug Screen Interp Ethyl Alcohol < 10 (Less than 10) mg/dL 04/21/19 04/21/19 04/21/19 Range/Units 02:08 10:02 10:02 WBC 9.0 (4.3-11.1) K/mcL RBC 5.02 H (3.82-4.97) M/mcL Hgb 13.4 (11.5-15.4) g/dL Hct 42.6 (35.3-44.9) % MCV 84.9 (83.0-100.0) fL MCH 26.7 L (28.0-33.3) pg MCHC 31.5 L (31.6-35.5) g/dL RDW 13.2 (11.5-14.5) % Plt Count 253 (140-400) K/mcL MPV 10.5 (9.4-12.4) fL Immature Gran % 0.3 (0-4) % Seg Neutrophils % 62.4 % Lymphocytes % 27.3 % Monocytes % 6.2 % Eosinophils % 3.6 % Basophils % 0.2 % Neutrophils # 5.6 (1.6-8.9) K/mcL Lymphocytes # 2.5 (0.6-4.6) K/mcL Monocytes # 0.6 (0.0-1.3) K/mcL Eosinophils # 0.3 (0.0-0.6) K/mcL Basophils # 0.0 (0.0-0.2) K/mcL Sodium 136 (136-145) mEq/L Potassium 3.8 (3.5-5.1) mEq/L Chloride 108 H (98-107) mEq/L Carbon Dioxide 21 L (23-29) mEq/L BUN 10 (6-20) mg/dL Creatinine 0.62 (0.60-1.20) mg/dL Est GFR ( Amer) > 60 (> 60) Est GFR (Non-Af Amer) > 60 (> 60) BUN/Creatinine Ratio 16 (6-26) Glucose 117 H (70-105) mg/dL Est Mean Plasma Glucose mg/dl Hemoglobin A1c ( - 5.6) % Calculated Osmolality 282 (280-300) Calcium 9.2 (8.6-10.3) mg/dL Total Bilirubin 0.3 (0.3-1.0) mg/dL Direct Bilirubin (0.0-0.2) mg/dL Indirect Bilirubin (0.0-1.2) mg/dL AST 14 (13-39) Units/L ALT 22 (7-52) Units/L Alkaline Phosphatase 52 (34-104) Units/L Serum Total Protein 7.0 (6.4-8.9) g/dL Albumin 4.1 (3.5-5.7) g/dL Globulin 2.9 (2.4-3.5) g/dL Albumin/Globulin Ratio 1.4 (1.1-2.2) Triglycerides 207 H (< 150) mg/dL Cholesterol 140 (< 200) mg/dL LDL Cholesterol, Calc 66 (0-99) mg/dL VLDL Cholesterol, Calc 41 H (< 31) mg/dL HDL Cholesterol 33 L (40-59) mg/dL Cholesterol/HDL Ratio 4.2 (0-4.9) TSH 8.545 H (0.340-5.600) mcIU/mL Serum , Qual (Negative) Urine Color (Yellow) Urine Clarity (Clear) Urine pH (5.0-8.0) pH Units Ur Specific [place] (1.010-1.025) Urine Protein (Neg-Trace) mg/dL Urine Glucose (UA) (Normal) mg/dL Urine Ketones (Negative) mg/dL Urine Blood (Negative) Urine Nitrite (Negative) Urine Bilirubin (Negative) Urine Urobilinogen (Normal) mg/dL Ur Leukocyte Esterase (Negative) Urine Microscopic WBC (0-3) per hpf Ur Squamous Epith Cells (None-Few) per lpf Calcium Oxalate Crystal Urine Bacteria (None-Few) per hpf Hyaline Casts (None-Few) per lpf Salicylates (15.0-30.0) mg/dL Urine Opiates Screen (Oozycq=551) ng/mL Acetaminophen (10-20) mcg/mL Ur Barbiturates Screen (Zmmuza=398) ng/mL Ur Phencyclidine Scrn (Cutoff=25) ng/mL Ur Amphetamines Screen (Mtimdd=9952) ng/mL U Benzodiazepines Scrn (Bmjtep=904) ng/mL [place] 0.3 L (0.6-1.2) mEq/L Urine Cocaine Screen (Cutoff= 300) ng/mL U Marijuana (THC) Screen (Cutoff = 50) ng/mL Ur Drug Screen Interp Ethyl Alcohol (Less than 10) mg/dL 04/21/19 04/22/19 Range/Units 10:02 07:45 WBC (4.3-11.1) K/mcL RBC (3.82-4.97) M/mcL Hgb (11.5-15.4) g/dL Hct (35.3-44.9) % MCV (83.0-100.0) fL MCH (28.0-33.3) pg MCHC (31.6-35.5) g/dL RDW (11.5-14.5) % Plt Count (140-400) K/mcL MPV (9.4-12.4) fL Immature Gran % (0-4) % Seg Neutrophils % % Lymphocytes % % Monocytes % % Eosinophils % % Basophils % % Neutrophils # (1.6-8.9) K/mcL Lymphocytes # (0.6-4.6) K/mcL Monocytes # (0.0-1.3) K/mcL Eosinophils # (0.0-0.6) K/mcL Basophils # (0.0-0.2) K/mcL Sodium (136-145) mEq/L Potassium (3.5-5.1) mEq/L Chloride (98-107) mEq/L Carbon Dioxide (23-29) mEq/L BUN (6-20) mg/dL Creatinine (0.60-1.20) mg/dL Est GFR ( Amer) (> 60) Est GFR (Non-Af Amer) (> 60) BUN/Creatinine Ratio (6-26) Glucose (70-105) mg/dL Est Mean Plasma Glucose 117 mg/dl Hemoglobin A1c 5.7 H ( - 5.6) % Calculated Osmolality (280-300) Calcium (8.6-10.3) mg/dL Total Bilirubin (0.3-1.0) mg/dL Direct Bilirubin (0.0-0.2) mg/dL Indirect Bilirubin (0.0-1.2) mg/dL AST (13-39) Units/L ALT (7-52) Units/L Alkaline Phosphatase (34-104) Units/L Serum Total Protein (6.4-8.9) g/dL Albumin (3.5-5.7) g/dL Globulin (2.4-3.5) g/dL Albumin/Globulin Ratio (1.1-2.2) Triglycerides (< 150) mg/dL Cholesterol (< 200) mg/dL LDL Cholesterol, Calc (0-99) mg/dL VLDL Cholesterol, Calc (< 31) mg/dL HDL Cholesterol (40-59) mg/dL Cholesterol/HDL Ratio (0-4.9) TSH (0.340-5.600) mcIU/mL Serum , Qual (Negative) Urine Color (Yellow) Urine Clarity (Clear) Urine pH (5.0-8.0) pH Units Ur Specific [place] (1.010-1.025) Urine Protein (Neg-Trace) mg/dL Urine Glucose (UA) (Normal) mg/dL Urine Ketones (Negative) mg/dL Urine Blood (Negative) Urine Nitrite (Negative) Urine Bilirubin (Negative) Urine Urobilinogen (Normal) mg/dL Ur Leukocyte Esterase (Negative) Urine Microscopic WBC (0-3) per hpf Ur Squamous Epith Cells (None-Few) per lpf Calcium Oxalate Crystal Urine Bacteria (None-Few) per hpf Hyaline Casts (None-Few) per lpf Salicylates (15.0-30.0) mg/dL Urine Opiates Screen (Eprdgm=906) ng/mL Acetaminophen (10-20) mcg/mL Ur Barbiturates Screen (Vfsgyo=796) ng/mL Ur Phencyclidine Scrn (Cutoff=25) ng/mL Ur Amphetamines Screen (Xrvjjm=4781) ng/mL U Benzodiazepines Scrn (Jghllj=881) ng/mL [place] 0.5 L (0.6-1.2) mEq/L Urine Cocaine Screen (Cutoff= 300) ng/mL U Marijuana (THC) Screen (Cutoff = 50) ng/mL Ur Drug Screen Interp Ethyl Alcohol (Less than 10) mg/dL Provider Date of admission: 04/21/19 01:54 Primary care physician: PCP NONE Discharging clinician: Polly Quiroz Psychiatry Exam - Constitutional Vitals: Temp Pulse Resp BP Pulse Ox 98.1 F 81 18 119/86 99 04/22/19 20:00 04/22/19 20:00 04/22/19 20:00 04/22/19 20:00 04/22/19 20:00 General appearance: age & developmentally appropriate, well-groomed, well- nourished - Musculoskeletal Gait: normal Station: relaxed Strength & Tone: normal for patient - Psychiatric Patient Orientation: Yes Person, Yes Time, Yes Place Level of alertness: Alert Behavior: calm, cooperative Psychomotor activity: Normal Eye Contact: Maintains Eye Contact Mood Description: Euthymic/stable Patient description of mood: Good Affect description: congruent with mood, full range Speech Volume: Normal Speech pattern: normal rate, normal rhythm, normal tone, fluent, spontaneous Language & Vocabulary: consistent with education Thought Process: Linear, Goal Oriented Thought Content: No Suicidal ideation, No Homicidal ideation, No Overt delusions Perceptual Disturbances: No Auditory hallucinations, No Visual hallucinations Attention Span Ability: Capable of Focused Attention Memory Description: Grossly Intact Patient Reliability: Reliable Historian Fund of knowledge: Yes abstraction ability, Yes aware of current events Intelligence Estimate: Average Judgment: Good Insight: Full Hospital Course Hospital course: Ms. Lombardi is a 28 year old female who presented for increased anxiety and depression with concerns about dissociative episodes. She had initially wanted to go to a facility in [place] which she stated specialized in dissociative identity disorder but given the fact that she has never been formally diagnosed with this that was not possible. I spoke with her treating psychiatrist, Dr. Jacklyn Gilman, who also spoke with her treating therapist. None had ever formally diagnosed dissociative identity disorder. Dr. Christensen was in agreement with the plan to increase Abilify back to 10 mg daily with the addition of low- dose Cogentin twice a day to address muscle stiffness she had had when she was previously on that dose. She was not observed to have periods where she would have loss of track of time during her hospital stay.. She did have one episode in a group where she used another name, Shasta, to sign a letter which she had written to herself after being prompted to write an apology letter to someone in the group. She also at one point asked for a different pair of glasses and that she often changes close [place] on which alter she is experiencing. We spent quite a bit of time discussing the fact that if she did have the DID, it is not recommended to try to pick apart different alters but instead to move toward integration and establishing a whole. Patient was educated on her diagnosis of bipolar disorder and the risk-benefit side effects of her treatment regimen and alternative treatment options and was monitored for responsiveness and side effects. Mood anxiety sleep and appetite interest improved as did future orientation. Self-harm thoughts were not present, thinking was clear, psychosis resolved, and mood stabilized. Patient was able to attend both individual and group therapy sessions as well as meet with the psychiatrist daily and urged to discuss any medication or treatment issues or other concerns. The patient was educated primarily by verbal means about their diagnosis and manifestations in their life. The option for treatment including group and individual therapy programming was offered to the patient in addition to the use of medications with all their potential risks, benefits, and side effects as well as the risks of not taking medication and no n-adhereance were discussed with the patient at length. The patient was given the opportunity to ask questions and was noted to participate in the treatment in the planning process. The patient felt ready and eager to be discharged from the inpatient psychiatric unit to continue on with treatment as an outpatient. She said her children were currently in [place] visiting her grandmother which gave her and her some alone time which she was looking forward to. The patient agreed that she is safe for this disposition. The patient was considered to be able to participate in informed consent and decision making with respect to medical, legal, and financial issues of the time of discharge. At the time of discharge the patient adamantly denied any concerns for lethality including suicidal or homicidal thoughts ideations or plans and was future oriented toward ongoing mental health care and medical follow-up. Time spent discussing smoking cessation with patient: 3 to 10 minutes Does patient wish to continue nicotine replacement upon disc: No - Time Spent with Patient Total time spent providing and/or coordinating discharge services: 20 Less than 30 minutes Specific discharge activities: Interval history reviewed. Available labs reviewed . Psychotherapy provided. Patient had an opportunity to ask questions and address concerns. Patient was in agreement with the treatment plan. The risks benefits and side effects of medications were discussed with the patient, including alternatives and treatment. The patient was educated on the abstaining from any alcohol or illicit substances, following up with all scheduled appointments, and taking all medications as prescribed. Assessment and Plan - Patient/Caregiver Discharge Instructions Activity: resume usual activities as tolerated Diet: regular diet Additional Instructions: Continue current medications. Follow up with outpatient mental health. Encourage continued therapy and patient is linked with [facility]. The patient was discharged to home. - Follow up Plan Follow up with: [facility] [Outside] - 05/01/19 10:00 am (You have an appointment scheduled on Saturday, May 01, 2019 at 10:00 AM with Sheree Quiroz PCC for Counseling. Please contact the office at least 24 hours in advance if you are unable to keep your appointment(s). ) Functional capacity at discharge: independent ambulation Overall status at discharge: Stable Disposition: Home, Self-Care Quality - Multiple Antipsychotics Patient discharged on 2 or more antipsychotic medications: No Procedures - Procedures Procedures: Medication Management, Crisis Stabilization, Supportive Therapy, Group Therapy, Psychoeducational Therapy
[2019-04-23] MEDS ORDERED: ARIPiprazole 10 MG TABLET PO SCH (09:00)
[2019-04-23] MEDS: hydrOXYzine pamoate 25 MG CAPSULE PO SCH (09:17)
[2019-04-23] MEDS: NORGESTIMATE ETHINYL ESTRADIOL PO SCH (09:18)
[2019-04-23] MEDS: Lithium Carbonate ER 450 MG TABLET.ER PO SCH (09:18)
[2019-04-23] MEDS: Nicotine 2 MG GUM BC PRN ×2 (09:19→13:44)
[2019-04-23 10:34] VITALS: BP 114/78
== END 2019-04-23 17:45 | disposition home or self-care (01) | DRG 753 ==
LOC: EMEROOARM 19:25 → 1ANU 19:25 → OBSVTOIN 04-21 01:54 → 1ANU 04-21 02:02
PROVIDERS: ADMIT Psychiatry & Neurology Psychiatry; ATTEND Psychiatry & Neurology Psychiatry